=== PATIENT | male | born 1935 | race Two or more races ===

== ENCOUNTER 2023-02-05 00:27 | Inpatient (IN) | payer MEDICARE, OTHER ==
[~2023-02-05] VITALS: Ht 165.1 cm; Wt 77.1 kg
[2023-02-05 01:18] LABS: HEMATOCRIT 43.4 % (36.7-47.1); MEAN CORPUSCULAR HEMOGLOBIN 31.1 uug (23.8-33.4); MEAN CORPUSCULAR VOLUME 89.7 fL (73.0-96.2); PLATELET COUNT (AUTO) 374 K/uL (152-348)
[2023-02-05] MEDS ORDERED: TIMO5DRO18 EACHEYE (01:20)
[2023-02-05] MEDS ORDERED: RANO500T3 PO (01:20)
[2023-02-05] MEDS ORDERED: MONT10TA33 PO (01:20)
[2023-02-05] MEDS ORDERED: POLY17PO4 PO (01:20)
[2023-02-05] MEDS ORDERED: CALC667T6 PO (01:20)
[2023-02-05] MEDS ORDERED: APIX2.5T PO (01:20)
[2023-02-05] MEDS ORDERED: [UNRECOGNIZED DRUG - CODE] SUBCUT (01:20)
[2023-02-05] MEDS ORDERED: DOCU100C36 PO (01:20)
[2023-02-05] MEDS ORDERED: DULO20CA PO (01:20)
[2023-02-05] MEDS ORDERED: ASCO500T85 PO (01:20)
[2023-02-05] MEDS ORDERED: ZINC220T3 PO (01:20)
[2023-02-05] MEDS ORDERED: CLOP75TA33 PO (01:20)
[2023-02-05] MEDS ORDERED: ATOR40TA PO (01:20)
[2023-02-05] MEDS ORDERED: AMIO200T5 PO (01:20)
[2023-02-05] MEDS ORDERED: GABA-532 PO (01:20)
[2023-02-05] MEDS ORDERED: TOLT2CAP PO (01:20)
[2023-02-05] MEDS ORDERED: MIDO10TA PO (01:20)
[2023-02-05] MEDS ORDERED: ERYT3.5O24 EACHEYE (01:20)
[2023-02-05] MEDS ORDERED: NITR0.4T48 SL (01:20)
[2023-02-05 01:37] LABS: ALANINE AMINOTRANSFERASE 20 U/L (16-63); ALKALINE PHOSPHATASE 116 U/L (50-136); ASPARTATE AMINOTRANSFERASE 10 U/L (15-37); BILIRUBIN,DIRECT 0.2 mg/dL (0.0-0.2); BILIRUBIN,TOTAL 0.9 mg/dL (0.2-1.0); CARBON DIOXIDE 30 mmol/L (21-32); CHLORIDE 105 mmol/L (98-107); CREATININE 1.7 mg/dL (0.6-1.3); GLUCOSE 139 mg/dL (74-106); TOTAL PROTEIN, SERUM 7.3 g/dL (6.4-8.2); UREA NITROGEN, BLOOD 58 mg/dL (7-18)
[2023-02-05 01:40] LABS: ACETAMINOPHEN < 2.0 ug/mL (10-30)
[2023-02-05 01:47] LABS: *BILIRUBIN,URIN NEGATIVE (NEGATIVE); *COLOR,URINE YELLOW (YELLOW); *KETONES,URINE NEGATIVE (NEGATIVE); *UROBILINOGEN,URINE 0.2 E.U./dl (NORMAL); LEUKOCYTE ESTERASE ,URINE 3+ (NEGATIVE); NITRITE, URINE NEGATIVE (NEGATIVE); UGLUCOSE NEGATIVE (NEGATIVE)
[2023-02-05 01:48] LABS: *BLOOD, URINE TRACE (NEGATIVE); *CLARITY,URINE SLIGHTLY CLOUDY (CLEAR)
[2023-02-05 01:57] LABS: *AMPHETAMINE, URINE NEGATIVE (NEGATIVE); *CANNABINOID, URINE NEGATIVE (NEGATIVE); *COCCAINE, URINE NEGATIVE (NEGATIVE); *PHENCYCLIDINE SCREEN,URINE NEGATIVE (NEGATIVE)
--- NOTE | 2023-02-05 02:10 | NUR ---
Telephone call to PET team [place] for eveal. Patient medically cleared.
[2023-02-05 02:34] LABS: BACTERIA,URINE MODERATE /HPF (NONE SEEN); SQUAMOUS EPITHELIAL CELL,UR MANY /HPF (NONE SEEN); WBC,URINE 50-80 /HPF (0-3)
[2023-02-05] MEDS ORDERED: CIPROFLOXACIN HCL 250 MG TABLET PO ONE (02:45)
--- NOTE | 2023-02-05 02:47 | NUR ---
Alber from PET team here to eval patient.
[2023-02-05] MEDS ORDERED: CIPROFLOXACIN HCL 250 MG TABLET ONE (02:53)
--- NOTE | 2023-02-05 03:03 | NUR ---
Patient placed on a 5150 hold for GD.
--- NOTE | 2023-02-05 03:10 | NUR ---
Report given to U nurse
[2023-02-05] MEDS ORDERED: DEXTROSE 50% 50 ML DISP.SYRIN IV PRN (03:30)
--- NOTE | 2023-02-05 04:28 | NUR ---
Pt. admitted to MHU unit, under care of Dr. Lo and OFFICE MACHINE SERVICER APPRENTICE Moni. Report given to nurse Ric. Belongings List completed
[2023-02-05 05:45] VITALS: BP 129/56
[2023-02-05] MEDS ORDERED: MAGNESIUM HYDROXIDE 30 ML LIQUID UDC PO PRN (06:00)
[2023-02-05] MEDS ORDERED: BLOOD SUGAR DIAGNOSTIC 1 EACH STRIP VI ONE (06:00)
[2023-02-05] MEDS ORDERED: MAG HYDROX/AL HYDROX/SIMETH 30 ML LIQUID UDC PO PRN (06:00)
[2023-02-05] MEDS ORDERED: TEMAZEPAM 7.5 MG CAPSULE PO PRN (06:00)
--- NOTE | 2023-02-05 06:19 | NUR ---
GPS Admission Nursing Notes: Received 87 y/o male of a 5150 hold for being Gravely Disabled. Pt arrived into our ER via ambulance then transferred into our unit at 0445 hours on [facility] via ER staff. Per hold pt was yelling and screaming at his staff at [facility] in [place], [place]. He became too difficult to care for. Upon face to face assessment, pt was AOx2, yelling/screaming out unnecessary demands. He mainly speaks Luxembourgish, but can speak and understand some Maldivian. He was disheveled, confused, total care, and non-compliant. He was non-ambulatory and was directly transferred from ER [facility] onto his bed. (L) lower leg wound. Picture taken and placed into his chart. Patient was given his Advisement and Patient's Handbook. He'll be under the care of Dr. Lo and INSTRUCTIONAL CONSULTANT Moni.
[2023-02-05] MEDS: BLOOD SUGAR DIAGNOSTIC 1 EACH STRIP VI SCH ×4 (07:30→20:19)
[2023-02-05] MEDS ORDERED: ERYTHROMYCIN 0.5% OPHT OINT 3.5 GM TUBE EACHEYE SCH ×2 (09:00)
[2023-02-05] MEDS ORDERED: MIDODRINE HCL 5 MG TABLET PO SCH ×2 (09:00)
[2023-02-05] MEDS: MIRALAX 17 GM POWD.PACK PO SCH (09:00)
[2023-02-05 09:12] VITALS: BP 158/80
[2023-02-05] MEDS: CALCIUM ACETATE 667 MG CAP/TAB PO SCH ×3 (10:34→18:15)
[2023-02-05] MEDS: RANOLAZINE 500 MG TAB.ER.12H PO SCH ×2 (10:34→18:16)
[2023-02-05] MEDS: TOLTERODINE LA 2 MG CAP.SR.24H PO SCH ×2 (10:34→18:13)
[2023-02-05] MEDS: GABAPENTIN 100 MG CAPSULE PO SCH ×2 (10:36→18:16)
[2023-02-05] MEDS: AMIODARONE HCL 200 MG TABLET PO SCH (10:37)
[2023-02-05] MEDS: APIXABAN 2.5 MG TABLET PO SCH ×2 (10:37→18:15)
[2023-02-05] MEDS: CLOPIDOGREL 75 MG TABLET PO SCH (10:38)
[2023-02-05] MEDS: TIMOLOL MALEATE 0.5% OPHT DROP 5 ML BOTTLE EACHEYE SCH ×2 (10:39→18:17)
[2023-02-05] MEDS: ZINC SULFATE 220 MG CAPSULE PO SCH (10:41)
[2023-02-05] MEDS: DOCUSATE SODIUM 100 MG CAPSULE PO SCH (10:41)
[2023-02-05] MEDS: ASCORBIC ACID 500 MG TABLET PO SCH (10:42)
--- NOTE | 2023-02-05 11:41 | NUR ---
Patient blood glucose was not charted this morning by previous shift, and I could not recheck it because patient had eaten his breakfast at 09:00AM.
[2023-02-05] MEDS ORDERED: CEphaleXIN 500 MG CAPSULE PO SCH (12:00)
[2023-02-05] MEDS: INSULIN REGULAR, HUMAN 300 UNIT/3 ML VIAL SQ PRN ×2 (12:36→18:24)
--- NOTE | 2023-02-05 12:41 | NUR ---
blood glucose is 226, 6 units given per sliding scale.
[2023-02-05] MEDS: DIVALPROEX SPRINKLE 125 MG CAP.SPRINK PO SCH ×2 (13:25→18:13)
[2023-02-05] MEDS: CEphaleXIN 250 MG CAPSULE PO SCH ×2 (13:26→21:59)
[2023-02-05 15:34] VITALS: BP 176/57
[2023-02-05] MEDS: DULOXETINE 30 MG CAPSULE.DR PO SCH (18:13)
[2023-02-05] MEDS: GABAPENTIN 300 MG CAPSULE PO SCH (19:07)
--- NOTE | 2023-02-05 19:54 | NUR ---
Patient is cooperative with nursing care, compliant with medications, calm, talkative. A/O X 2 to person, place. Emotional support provided. Fall and safety precautions implemented.
[2023-02-05] MEDS: ATORVASTATIN 40 MG TABLET PO SCH (20:26)
[2023-02-05] MEDS: MONTELUKAST SODIUM 10 MG TABLET PO SCH (20:26)
[2023-02-05] MEDS: INSULIN GLARGINE,HUM 300 UNITS/3 ML CARTRIDGE SQ SCH (20:27)
[2023-02-05 20:39] VITALS: BP 150/62
[2023-02-05] MEDS: INSULIN REGULAR, HUMAN 300 UNITS/3 ML VIAL SQ PRN (20:44)
--- NOTE | 2023-02-05 23:53 | NUR ---
GPS: Asleep upon rounds with resp.even and unlabored. Pt.was anxious,easily irritable and labile earlier. Re-directed and re-assured prn. Took bedtime meds.without any problems. Fall precautions observed. Needs attended. Insight and judgment remains impaired.
[2023-02-06] MEDS: CEphaleXIN 250 MG CAPSULE PO SCH ×3 (06:01→21:08)
[2023-02-06] MEDS: BLOOD SUGAR DIAGNOSTIC 1 EACH STRIP VI SCH ×4 (06:13→20:38)
[2023-02-06 07:23] LABS: ALANINE AMINOTRANSFERASE 13 U/L (16-63); ALKALINE PHOSPHATASE 97 U/L (50-136); ASPARTATE AMINOTRANSFERASE 9 U/L (15-37); BILIRUBIN,TOTAL 0.8 mg/dL (0.2-1.0); CARBON DIOXIDE 32 mmol/L (21-32); CHLORIDE 106 mmol/L (98-107); CREATININE 1.6 mg/dL (0.6-1.3); GLUCOSE 111 mg/dL (74-106); POTASSIUM 5.1 mmol/L (3.5-5.1); TOTAL PROTEIN, SERUM 6.5 g/dL (6.4-8.2); UREA NITROGEN, BLOOD 53 mg/dL (7-18)
--- NOTE | 2023-02-06 07:30 | NUR ---
GPS Nursing notes: Patient is in his room lying in bed awake, with no S/S of distress, Patient denies pain or discomforts, stated he would like to shower this morning, fall and safety precaution implemented.will continue to monitor.
[2023-02-06 08:00] VITALS: BP 147/81
[2023-02-06] MEDS: CLOPIDOGREL 75 MG TABLET PO SCH (08:32)
[2023-02-06] MEDS: APIXABAN 2.5 MG TABLET PO SCH ×2 (08:32→16:58)
[2023-02-06] MEDS: CALCIUM ACETATE 667 MG CAP/TAB PO SCH ×3 (08:32→16:59)
[2023-02-06] MEDS: DULOXETINE 30 MG CAPSULE.DR PO SCH ×2 (08:32→17:01)
[2023-02-06] MEDS: DOCUSATE SODIUM 100 MG CAPSULE PO SCH (08:32)
[2023-02-06] MEDS: DIVALPROEX SPRINKLE 125 MG CAP.SPRINK PO SCH ×3 (08:33→17:01)
[2023-02-06] MEDS: ASCORBIC ACID 500 MG TABLET PO SCH (08:33)
[2023-02-06] MEDS: GABAPENTIN 300 MG CAPSULE PO SCH ×2 (08:35→17:01)
[2023-02-06] MEDS: AMIODARONE HCL 200 MG TABLET PO SCH (08:35)
[2023-02-06] MEDS: TIMOLOL MALEATE 0.5% OPHT DROP 5 ML BOTTLE EACHEYE SCH ×2 (08:36→16:58)
[2023-02-06] MEDS: TOLTERODINE LA 2 MG CAP.SR.24H PO SCH ×2 (08:38→17:01)
[2023-02-06] MEDS: ZINC SULFATE 220 MG CAPSULE PO SCH (08:38)
[2023-02-06] MEDS: MIRALAX 17 GM POWD.PACK PO SCH (08:55)
[2023-02-06] MEDS: RANOLAZINE 500 MG TAB.ER.12H PO SCH ×2 (09:44→16:59)
--- NOTE | 2023-02-06 10:01 | NUR ---
SHERINE Initial Discharge Note: Pt currently resides at [facility] located at [address] [address] ([phone]). SHERINE will contact the admissions team regarding pt's return upon discharge. SHERINE will continue to obtain family contact if available to discuss pt's discharge plan. SHERINE will work with pt and MD to ensure a safe and proper discharge plan.
--- NOTE | 2023-02-06 10:18 | NUR ---
GPS Nursing Notes: Patient with bright affect clear speech, able to verbalized needs, patient is total care, showered patient today with 2 assist, cooperative with medication regiment. At this time patient attending groups. fall and safety precaution observe, emotional support provided.
[2023-02-06] MEDS: INSULIN REGULAR, HUMAN 300 UNIT/3 ML VIAL SQ PRN ×2 (11:37→17:11)
--- NOTE | 2023-02-06 12:07 | NUR ---
Firearms Report: Supervisor Microwave completed and submitted a [employer] firearms report for 5150 grave disability certifications. A copy of report has been placed in patient chart.
[2023-02-06 15:16] VITALS: BP 145/61
--- NOTE | 2023-02-06 16:39 | NUR ---
GPS Nursing notes: [email or web address] called to report Patient is MRSA positive of Nares, called epic to page Medical wood box maker at this time.
[2023-02-06 20:24] VITALS: BP 106/46
[2023-02-06] MEDS: REMEDY ESSENTIAL ZINC PASTE 113 GM TOP SCH (20:32)
[2023-02-06] MEDS: MUPIROCIN 2% OINT 22 GM TUBE NS SCH (20:34)
[2023-02-06] MEDS: INSULIN REGULAR, HUMAN 300 UNITS/3 ML VIAL SQ PRN (20:45)
[2023-02-06] MEDS: MONTELUKAST SODIUM 10 MG TABLET PO SCH (20:47)
[2023-02-06] MEDS: ATORVASTATIN 40 MG TABLET PO SCH (20:47)
[2023-02-06] MEDS: INSULIN GLARGINE,HUM 300 UNITS/3 ML CARTRIDGE SQ SCH (20:48)
[2023-02-07] MEDS: CEphaleXIN 250 MG CAPSULE PO SCH ×3 (06:10→21:18)
[2023-02-07] MEDS: BLOOD SUGAR DIAGNOSTIC 1 EACH STRIP VI SCH ×4 (06:30→20:23)
--- NOTE | 2023-02-07 06:38 | NUR ---
GPS: Pt.slept 7.30 last night. Less anxious and needy. Med.compliant. Allows care from staff. No aggressive behavior noted. B.S. at this time is 86mg/dl. Incontinence care rendered. Fall precautions observed.Will continue to monitor.
--- NOTE | 2023-02-07 07:00 | NUR ---
GPS Nursing notes: Patient is awake,lying in bed, with bright affect, stated ,"Good Morning", clapping his hand. no S/S of discomforts noted. Fall and safety precaution implemented, will continue to monitor.
[2023-02-07 07:46] VITALS: BP 135/47
[2023-02-07] MEDS: APIXABAN 2.5 MG TABLET PO SCH ×2 (08:13→16:50)
[2023-02-07] MEDS: MIRALAX 17 GM POWD.PACK PO SCH (08:14)
[2023-02-07] MEDS: DIVALPROEX SPRINKLE 125 MG CAP.SPRINK PO SCH ×3 (08:15→16:59)
[2023-02-07] MEDS: DULOXETINE 30 MG CAPSULE.DR PO SCH ×2 (08:15→16:59)
[2023-02-07] MEDS: DOCUSATE SODIUM 100 MG CAPSULE PO SCH (08:15)
[2023-02-07] MEDS: ASCORBIC ACID 500 MG TABLET PO SCH (08:15)
[2023-02-07] MEDS: CLOPIDOGREL 75 MG TABLET PO SCH (08:15)
[2023-02-07] MEDS: ZINC SULFATE 220 MG CAPSULE PO SCH (08:15)
[2023-02-07] MEDS: CALCIUM ACETATE 667 MG CAP/TAB PO SCH ×3 (08:16→16:50)
[2023-02-07] MEDS: GABAPENTIN 300 MG CAPSULE PO SCH ×2 (08:16→16:59)
[2023-02-07] MEDS: RANOLAZINE 500 MG TAB.ER.12H PO SCH ×2 (08:16→16:50)
[2023-02-07] MEDS: TIMOLOL MALEATE 0.5% OPHT DROP 5 ML BOTTLE EACHEYE SCH ×2 (08:18→16:50)
[2023-02-07] MEDS: MUPIROCIN 2% OINT 22 GM TUBE NS SCH ×2 (08:19→20:14)
[2023-02-07] MEDS: AMIODARONE HCL 200 MG TABLET PO SCH (08:19)
[2023-02-07] MEDS: TOLTERODINE LA 2 MG CAP.SR.24H PO SCH ×2 (08:29→16:59)
[2023-02-07] MEDS: REMEDY ESSENTIAL ZINC PASTE 113 GM TOP SCH ×2 (08:43→20:14)
--- NOTE | 2023-02-07 11:06 | NUR ---
GPS 14 Day Hold Certification: Patient place on 5250, Certification given to patient and explained. Patient was informed that a certification review hearing will be hel with in four days. Also, patient's right advocate will call to provide esol teacher assistant on answering his questions. The court has been notified of this certification via [facility] Portal this day.
[2023-02-07] MEDS: INSULIN REGULAR, HUMAN 300 UNIT/3 ML VIAL SQ PRN (12:01)
[2023-02-07 16:35] VITALS: BP 157/54
[2023-02-07 20:00] VITALS: BP 147/61
[2023-02-07] MEDS: MONTELUKAST SODIUM 10 MG TABLET PO SCH (20:14)
[2023-02-07] MEDS: ATORVASTATIN 40 MG TABLET PO SCH (20:14)
[2023-02-07] MEDS: INSULIN GLARGINE,HUM 300 UNITS/3 ML CARTRIDGE SQ SCH (20:25)
[2023-02-08] MEDS: CEphaleXIN 250 MG CAPSULE PO SCH ×3 (06:11→21:07)
[2023-02-08] MEDS: BLOOD SUGAR DIAGNOSTIC 1 EACH STRIP VI SCH ×5 (06:21→21:14)
[2023-02-08 08:17] VITALS: BP 186/54
[2023-02-08] MEDS: ASCORBIC ACID 500 MG TABLET PO SCH (09:00)
[2023-02-08] MEDS: AMIODARONE HCL 200 MG TABLET PO SCH (09:09)
[2023-02-08] MEDS: DOCUSATE SODIUM 100 MG CAPSULE PO SCH (09:09)
[2023-02-08] MEDS: CLOPIDOGREL 75 MG TABLET PO SCH (09:09)
[2023-02-08] MEDS: DIVALPROEX SPRINKLE 125 MG CAP.SPRINK PO SCH ×3 (09:09→16:53)
[2023-02-08] MEDS: GABAPENTIN 300 MG CAPSULE PO SCH ×2 (09:10→16:54)
[2023-02-08] MEDS: DULOXETINE 30 MG CAPSULE.DR PO SCH ×2 (09:10→16:54)
[2023-02-08] MEDS: APIXABAN 2.5 MG TABLET PO SCH ×2 (09:12→16:53)
[2023-02-08] MEDS: CALCIUM ACETATE 667 MG CAP/TAB PO SCH ×3 (09:13→16:55)
[2023-02-08] MEDS: MIRALAX 17 GM POWD.PACK PO SCH (09:14)
[2023-02-08] MEDS: RANOLAZINE 500 MG TAB.ER.12H PO SCH ×2 (09:14→16:55)
[2023-02-08] MEDS: TOLTERODINE LA 2 MG CAP.SR.24H PO SCH ×2 (09:15→16:53)
[2023-02-08] MEDS: TIMOLOL MALEATE 0.5% OPHT DROP 5 ML BOTTLE EACHEYE SCH ×2 (09:22→16:56)
[2023-02-08] MEDS: MUPIROCIN 2% OINT 22 GM TUBE NS SCH ×2 (09:23→21:08)
[2023-02-08] MEDS: REMEDY ESSENTIAL ZINC PASTE 113 GM TOP SCH ×2 (09:24→21:14)
[2023-02-08] MEDS: ZINC SULFATE 220 MG CAPSULE PO SCH (09:24)
[2023-02-08 16:29] VITALS: BP 148/65
[2023-02-08] MEDS: INSULIN REGULAR, HUMAN 300 UNIT/3 ML VIAL SQ PRN (16:51)
[2023-02-08] MEDS: ATORVASTATIN 40 MG TABLET PO SCH (21:07)
[2023-02-08] MEDS: MONTELUKAST SODIUM 10 MG TABLET PO SCH (21:07)
[2023-02-08] MEDS: INSULIN GLARGINE,HUM 300 UNITS/3 ML CARTRIDGE SQ SCH (21:11)
[2023-02-08] MEDS: LORAZEPAM 0.5 MG TABLET PO PRN (23:12)
--- NOTE | 2023-02-09 00:13 | NUR ---
Pt had episodes of increased anxiety and was difficult to redirect. Pt would not follow directions from staff. Gave Ativan po prn to help calm patient and to prevent further moments of yelling out demands which kept others in the unit awake and anxious. Safe environment provided. Will continue to monitor.
[2023-02-09] MEDS: BLOOD SUGAR DIAGNOSTIC 1 EACH STRIP VI SCH ×4 (05:51→21:06)
[2023-02-09] MEDS: CEphaleXIN 250 MG CAPSULE PO SCH ×3 (05:59→20:43)
[2023-02-09 07:58] VITALS: BP 158/80
[2023-02-09] MEDS: MIRALAX 17 GM POWD.PACK PO SCH (09:16)
[2023-02-09] MEDS: RANOLAZINE 500 MG TAB.ER.12H PO SCH ×2 (09:17→17:12)
[2023-02-09] MEDS: DULOXETINE 30 MG CAPSULE.DR PO SCH (09:17)
[2023-02-09] MEDS: MUPIROCIN 2% OINT 22 GM TUBE NS SCH ×2 (09:17→20:06)
[2023-02-09] MEDS: TIMOLOL MALEATE 0.5% OPHT DROP 5 ML BOTTLE EACHEYE SCH ×2 (09:17→17:12)
[2023-02-09] MEDS: GABAPENTIN 300 MG CAPSULE PO SCH ×2 (09:18→17:09)
[2023-02-09] MEDS: CALCIUM ACETATE 667 MG CAP/TAB PO SCH ×3 (09:18→17:10)
[2023-02-09] MEDS: AMIODARONE HCL 200 MG TABLET PO SCH (09:19)
[2023-02-09] MEDS: DIVALPROEX SPRINKLE 125 MG CAP.SPRINK PO SCH ×2 (09:19→17:10)
[2023-02-09] MEDS: CLOPIDOGREL 75 MG TABLET PO SCH (09:20)
[2023-02-09] MEDS: DOCUSATE SODIUM 100 MG CAPSULE PO SCH (09:20)
[2023-02-09] MEDS: APIXABAN 2.5 MG TABLET PO SCH ×2 (09:21→17:11)
[2023-02-09] MEDS: TOLTERODINE LA 2 MG CAP.SR.24H PO SCH ×2 (09:22→17:09)
[2023-02-09] MEDS: REMEDY ESSENTIAL ZINC PASTE 113 GM TOP SCH ×2 (09:23→20:44)
[2023-02-09] MEDS: ASCORBIC ACID 500 MG TABLET PO SCH (09:23)
[2023-02-09] MEDS: ZINC SULFATE 220 MG CAPSULE PO SCH (09:23)
[2023-02-09] MEDS ORDERED: DIVALPROEX SPRINKLE 125 MG CAP.SPRINK PO ONE (13:00)
[2023-02-09 16:31] VITALS: BP 118/43
--- NOTE | 2023-02-09 17:45 | NUR ---
Received patient is alert and oriented x3 Frisian speaking denies any pain or discomfort, assisted patient up omar-chair ,patient able to attend in group activity and participated .glucose checked with sliding scale covered.no agitated and aggressive Behavior noted .total care to all ADLS will continue close to monitoring.eceived
[2023-02-09 19:49] VITALS: BP 123/62
[2023-02-09] MEDS: ATORVASTATIN 40 MG TABLET PO SCH (20:06)
[2023-02-09] MEDS: MONTELUKAST SODIUM 10 MG TABLET PO SCH (20:06)
[2023-02-09] MEDS: INSULIN REGULAR, HUMAN 300 UNITS/3 ML VIAL SQ PRN (20:41)
[2023-02-09] MEDS: INSULIN GLARGINE,HUM 300 UNITS/3 ML CARTRIDGE SQ SCH (20:42)
[2023-02-10] MEDS: CEphaleXIN 250 MG CAPSULE PO SCH ×3 (06:06→20:20)
[2023-02-10] MEDS: BLOOD SUGAR DIAGNOSTIC 1 EACH STRIP VI SCH ×4 (06:17→20:35)
--- NOTE | 2023-02-10 07:30 | NUR ---
GPS Nursing notes: Patient is in bed awake, denies pain or discomforts. Fall and safety precaution implemented, emotional support provided.
[2023-02-10 08:00] VITALS: BP 169/70
[2023-02-10] MEDS ORDERED: DULOXETINE 30 MG CAPSULE.DR PO SCH (08:00)
[2023-02-10] MEDS: ZINC SULFATE 220 MG CAPSULE PO SCH (08:54)
[2023-02-10] MEDS: AMIODARONE HCL 200 MG TABLET PO SCH (08:54)
[2023-02-10] MEDS: TOLTERODINE LA 2 MG CAP.SR.24H PO SCH ×2 (08:55→17:15)
[2023-02-10] MEDS: GABAPENTIN 300 MG CAPSULE PO SCH ×2 (08:55→17:15)
[2023-02-10] MEDS: DOCUSATE SODIUM 100 MG CAPSULE PO SCH (08:55)
[2023-02-10] MEDS: DIVALPROEX SPRINKLE 125 MG CAP.SPRINK PO SCH ×2 (08:55→17:58)
[2023-02-10] MEDS: ASCORBIC ACID 500 MG TABLET PO SCH (08:55)
[2023-02-10] MEDS: CLOPIDOGREL 75 MG TABLET PO SCH (08:55)
[2023-02-10] MEDS: MIRALAX 17 GM POWD.PACK PO SCH (08:57)
[2023-02-10] MEDS: RANOLAZINE 500 MG TAB.ER.12H PO SCH ×2 (08:57→17:15)
[2023-02-10] MEDS: MUPIROCIN 2% OINT 22 GM TUBE NS SCH ×2 (08:57→20:21)
[2023-02-10] MEDS: APIXABAN 2.5 MG TABLET PO SCH ×2 (08:57→17:16)
[2023-02-10] MEDS: CALCIUM ACETATE 667 MG CAP/TAB PO SCH ×3 (08:57→17:15)
[2023-02-10] MEDS: REMEDY ESSENTIAL ZINC PASTE 113 GM TOP SCH ×2 (09:11→20:23)
[2023-02-10] MEDS: TIMOLOL MALEATE 0.5% OPHT DROP 5 ML BOTTLE EACHEYE SCH ×2 (09:11→17:15)
[2023-02-10] MEDS: LORAZEPAM 0.5 MG TABLET PO PRN (10:09)
[2023-02-10] MEDS: INSULIN REGULAR, HUMAN 300 UNIT/3 ML VIAL SQ PRN (11:46)
[2023-02-10 16:00] VITALS: BP 111/66
[2023-02-10 20:12] VITALS: BP 141/64
[2023-02-10] MEDS: ATORVASTATIN 40 MG TABLET PO SCH (20:20)
[2023-02-10] MEDS: MONTELUKAST SODIUM 10 MG TABLET PO SCH (20:20)
[2023-02-10] MEDS: INSULIN GLARGINE,HUM 300 UNITS/3 ML CARTRIDGE SQ SCH (20:33)
[2023-02-10] MEDS: INSULIN REGULAR, HUMAN 300 UNITS/3 ML VIAL SQ PRN (20:35)
--- NOTE | 2023-02-11 00:19 | NUR ---
Pt displayed s/s of hypoglycemia. Pt was cold and clammy, sweaty, and somewhat slow in cognitive abilities. RBS noted 112. Gave orange juice and a few gram crackers. Patient stated that he felt better and was ready for sleep. Continued with monitoring.
--- NOTE | 2023-02-11 00:23 | NUR ---
Gave Restoril 7.5mg po prn for help with falling asleep per patient request. Safe environment provided. Will continue to monitor.
[2023-02-11] MEDS: CEphaleXIN 250 MG CAPSULE PO SCH ×3 (06:13→21:50)
[2023-02-11] MEDS: BLOOD SUGAR DIAGNOSTIC 1 EACH STRIP VI SCH ×4 (06:29→21:02)
[2023-02-11 07:00] LABS: HEMATOCRIT 40.3 % (36.7-47.1); MEAN CORPUSCULAR HEMOGLOBIN 32.1 uug (23.8-33.4); MEAN CORPUSCULAR VOLUME 88.9 fL (73.0-96.2); PLATELET COUNT (AUTO) 312 K/uL (152-348)
[2023-02-11 07:21] LABS: ALANINE AMINOTRANSFERASE 18 U/L (16-63); ALKALINE PHOSPHATASE 101 U/L (50-136); ASPARTATE AMINOTRANSFERASE 17 U/L (15-37); BILIRUBIN,TOTAL 0.7 mg/dL (0.2-1.0); CARBON DIOXIDE 35 mmol/L (21-32); CHLORIDE 102 mmol/L (98-107); CREATININE 1.2 mg/dL (0.6-1.3); GLUCOSE 96 mg/dL (74-106); POTASSIUM 4.7 mmol/L (3.5-5.1); TOTAL PROTEIN, SERUM 6.6 g/dL (6.4-8.2); UREA NITROGEN, BLOOD 31 mg/dL (7-18)
[2023-02-11 08:00] VITALS: BP 107/67
[2023-02-11] MEDS: TIMOLOL MALEATE 0.5% OPHT DROP 5 ML BOTTLE EACHEYE SCH ×2 (08:45→17:05)
[2023-02-11] MEDS: CLOPIDOGREL 75 MG TABLET PO SCH (08:46)
[2023-02-11] MEDS: ASCORBIC ACID 500 MG TABLET PO SCH (08:46)
[2023-02-11] MEDS: AMIODARONE HCL 200 MG TABLET PO SCH (08:46)
[2023-02-11] MEDS: DOCUSATE SODIUM 100 MG CAPSULE PO SCH (08:46)
[2023-02-11] MEDS: CALCIUM ACETATE 667 MG CAP/TAB PO SCH ×3 (08:46→17:04)
[2023-02-11] MEDS: GABAPENTIN 300 MG CAPSULE PO SCH ×2 (08:46→17:04)
[2023-02-11] MEDS: DIVALPROEX SPRINKLE 125 MG CAP.SPRINK PO SCH ×2 (08:46→17:04)
[2023-02-11] MEDS: ZINC SULFATE 220 MG CAPSULE PO SCH (08:46)
[2023-02-11] MEDS: MIRALAX 17 GM POWD.PACK PO SCH (08:47)
[2023-02-11] MEDS: REMEDY ESSENTIAL ZINC PASTE 113 GM TOP SCH ×2 (08:47→20:54)
[2023-02-11] MEDS: APIXABAN 2.5 MG TABLET PO SCH ×2 (08:47→17:05)
[2023-02-11] MEDS: RANOLAZINE 500 MG TAB.ER.12H PO SCH ×2 (08:48→17:04)
[2023-02-11] MEDS: MUPIROCIN 2% OINT 22 GM TUBE NS SCH ×2 (08:48→20:54)
[2023-02-11] MEDS: TOLTERODINE LA 2 MG CAP.SR.24H PO SCH ×2 (10:18→17:04)
--- NOTE | 2023-02-11 12:00 | NUR ---
Blood sugar POC test done , 159, insulin not given , patient did not want to eat lunch.
--- NOTE | 2023-02-11 15:13 | NUR ---
Received patient sleeping in his room. Patient is A/O X 2-3 to person, place. Patient is isolative, withdrawn, depressed, quiet, not engage in group activities or interactions with peers, compliant with medications, cooperative with nursing care. Emotional support provided. Fall and safety precautions implemented.
[2023-02-11 16:00] VITALS: BP 123/44
[2023-02-11] MEDS: INSULIN REGULAR, HUMAN 300 UNIT/3 ML VIAL SQ PRN (17:07)
--- NOTE | 2023-02-11 19:58 | NUR ---
Patient in bed, awake, able to make needs known during initial rounds. In no acute respiratory distress. Denies any pain/discomforts at this time. Safety measures and fall prevention continuos. VS stable.
[2023-02-11 20:00] VITALS: BP 142/73
[2023-02-11] MEDS: ATORVASTATIN 40 MG TABLET PO SCH (20:54)
[2023-02-11] MEDS: MONTELUKAST SODIUM 10 MG TABLET PO SCH (20:54)
[2023-02-11] MEDS ORDERED: REMEDY ESSENTIAL ZINC PASTE 113 GM TOP SCH (21:00)
[2023-02-11] MEDS: INSULIN GLARGINE,HUM 300 UNITS/3 ML CARTRIDGE SQ SCH (21:04)
[2023-02-12] MEDS: CEphaleXIN 250 MG CAPSULE PO SCH (06:10)
[2023-02-12] MEDS: BLOOD SUGAR DIAGNOSTIC 1 EACH STRIP VI SCH ×4 (06:15→20:32)
[2023-02-12 07:49] VITALS: BP 140/59
[2023-02-12] MEDS: ASCORBIC ACID 500 MG TABLET PO SCH (09:12)
[2023-02-12] MEDS: AMIODARONE HCL 200 MG TABLET PO SCH (09:13)
[2023-02-12] MEDS: ZINC SULFATE 220 MG CAPSULE PO SCH (09:13)
[2023-02-12] MEDS: DOCUSATE SODIUM 100 MG CAPSULE PO SCH (09:13)
[2023-02-12] MEDS: CLOPIDOGREL 75 MG TABLET PO SCH (09:13)
[2023-02-12] MEDS: DIVALPROEX SPRINKLE 125 MG CAP.SPRINK PO SCH ×2 (09:13→16:58)
[2023-02-12] MEDS: TOLTERODINE LA 2 MG CAP.SR.24H PO SCH ×2 (09:13→16:58)
[2023-02-12] MEDS: GABAPENTIN 300 MG CAPSULE PO SCH ×2 (09:13→16:58)
[2023-02-12] MEDS: CALCIUM ACETATE 667 MG CAP/TAB PO SCH ×3 (09:13→17:00)
[2023-02-12] MEDS: RANOLAZINE 500 MG TAB.ER.12H PO SCH ×2 (09:14→17:00)
[2023-02-12] MEDS: MIRALAX 17 GM POWD.PACK PO SCH (09:15)
[2023-02-12] MEDS: APIXABAN 2.5 MG TABLET PO SCH ×2 (09:15→16:59)
[2023-02-12] MEDS: TIMOLOL MALEATE 0.5% OPHT DROP 5 ML BOTTLE EACHEYE SCH ×2 (09:16→16:59)
[2023-02-12] MEDS: MUPIROCIN 2% OINT 22 GM TUBE NS SCH ×2 (09:17→20:34)
[2023-02-12] MEDS: REMEDY ESSENTIAL ZINC PASTE 113 GM TOP SCH ×2 (09:17→20:34)
--- NOTE | 2023-02-12 15:03 | NUR ---
Patient is talkative, cooperative with nursing care, compliant with medications and accuchecks, fixated on discharge plan, depressed at times, engage in group activities. Patient is A/O X 2 to person, place. Patient is encourage to verbalize concerns. Fall and safety precautions implemented.
[2023-02-12 16:22] VITALS: BP 146/80
[2023-02-12] MEDS: ATORVASTATIN 40 MG TABLET PO SCH (20:33)
[2023-02-12] MEDS: MONTELUKAST SODIUM 10 MG TABLET PO SCH (20:33)
[2023-02-12] MEDS: INSULIN REGULAR, HUMAN 300 UNITS/3 ML VIAL SQ PRN (20:38)
[2023-02-12] MEDS: INSULIN GLARGINE,HUM 300 UNITS/3 ML CARTRIDGE SQ SCH (20:39)
[2023-02-12 21:20] VITALS: BP 111/60
--- NOTE | 2023-02-13 04:53 | NUR ---
Pt is pleasant up on approach, compliant with medications and nursing care. Pt can be needy and demanding at times. Pt is labile and can get easily irritable when his demands are not met. Emotional support and reassurance provided. Safety measures in place. Continue to monitor for safety.
[2023-02-13] MEDS: BLOOD SUGAR DIAGNOSTIC 1 EACH STRIP VI SCH (06:48)
[2023-02-13 08:23] VITALS: BP 141/67
[2023-02-13] MEDS ORDERED: MIRALAX 17 GM POWD.PACK PO PRN (09:00)
[2023-02-13] MEDS: CLOPIDOGREL 75 MG TABLET PO SCH (09:01)
[2023-02-13] MEDS: DOCUSATE SODIUM 100 MG CAPSULE PO SCH (09:01)
[2023-02-13] MEDS: GABAPENTIN 300 MG CAPSULE PO SCH ×2 (09:02→16:57)
[2023-02-13] MEDS: TOLTERODINE LA 2 MG CAP.SR.24H PO SCH ×2 (09:02→16:57)
[2023-02-13] MEDS: ASCORBIC ACID 500 MG TABLET PO SCH (09:02)
[2023-02-13] MEDS: ZINC SULFATE 220 MG CAPSULE PO SCH (09:02)
[2023-02-13] MEDS: AMIODARONE HCL 200 MG TABLET PO SCH (09:02)
[2023-02-13] MEDS: DIVALPROEX SPRINKLE 125 MG CAP.SPRINK PO SCH ×2 (09:02→16:57)
[2023-02-13] MEDS: MUPIROCIN 2% OINT 22 GM TUBE NS SCH (09:03)
[2023-02-13] MEDS: TIMOLOL MALEATE 0.5% OPHT DROP 5 ML BOTTLE EACHEYE SCH ×2 (09:04→17:00)
[2023-02-13] MEDS: RANOLAZINE 500 MG TAB.ER.12H PO SCH ×2 (09:05→16:57)
[2023-02-13] MEDS: APIXABAN 2.5 MG TABLET PO SCH ×2 (09:05→16:59)
[2023-02-13] MEDS: REMEDY ESSENTIAL ZINC PASTE 113 GM TOP SCH ×2 (09:06→20:18)
--- NOTE | 2023-02-13 14:37 | NUR ---
Patient is easily agitated, needy, talkative, argumentative. Patient states "If you don't give me peanut butter and jelly for dinner, I won't eat anything, and won't take any medications, take your pick!" Emotional support provided. Fall and safety precautions implemented.
[2023-02-13 17:24] VITALS: BP 135/60
[2023-02-13] MEDS: ATORVASTATIN 20 MG TABLET PO SCH (20:10)
[2023-02-13] MEDS: MONTELUKAST SODIUM 10 MG TABLET PO SCH (20:10)
[2023-02-13] MEDS: INSULIN GLARGINE,HUM 300 UNITS/3 ML CARTRIDGE SQ SCH (20:24)
[2023-02-13 21:55] VITALS: BP 120/52
--- NOTE | 2023-02-14 04:11 | NUR ---
Pt is A/O X2, Pt can not care for self and needs total assistance with ADLs. Pt is compliant with medications and nursing care. Pt was less needy and less argumentative. Pt is unable to provide a bailable plan of care. Emotional support provided, safety measures put in place. Continue to monitor for safety.
[2023-02-14 08:30] VITALS: BP 137/60
[2023-02-14] MEDS: DOCUSATE SODIUM 100 MG CAPSULE PO SCH (08:46)
[2023-02-14] MEDS: TOLTERODINE LA 2 MG CAP.SR.24H PO SCH ×2 (08:46→16:34)
[2023-02-14] MEDS: TIMOLOL MALEATE 0.5% OPHT DROP 5 ML BOTTLE EACHEYE SCH ×2 (08:46→16:34)
[2023-02-14] MEDS: AMIODARONE HCL 200 MG TABLET PO SCH (08:46)
[2023-02-14] MEDS: DIVALPROEX SPRINKLE 125 MG CAP.SPRINK PO SCH ×2 (08:46→16:34)
[2023-02-14] MEDS: GABAPENTIN 300 MG CAPSULE PO SCH ×2 (08:47→16:34)
[2023-02-14] MEDS: APIXABAN 2.5 MG TABLET PO SCH ×2 (08:47→16:35)
[2023-02-14] MEDS: RANOLAZINE 500 MG TAB.ER.12H PO SCH ×3 (08:48→16:34)
[2023-02-14] MEDS: CLOPIDOGREL 75 MG TABLET PO SCH (08:48)
[2023-02-14] MEDS: ASCORBIC ACID 500 MG TABLET PO SCH (08:48)
[2023-02-14] MEDS: ZINC SULFATE 220 MG CAPSULE PO SCH (08:49)
[2023-02-14] MEDS: REMEDY ESSENTIAL ZINC PASTE 113 GM TOP SCH ×2 (08:49→21:04)
--- NOTE | 2023-02-14 09:30 | NUR ---
Argumentative, redirected. Ask to take 3 medications at a time. Shower given. Placed on gerichair, attended activity.
--- NOTE | 2023-02-14 13:30 | NUR ---
Eating well. Reports of being bloated after eating, why he's only taking 3 medication at a time. Requested to be back to bed, resting comfortably.
[2023-02-14 16:33] VITALS: BP 164/64
--- NOTE | 2023-02-14 17:31 | NUR ---
Requested for another portion of food. Redirected with taking of medications
[2023-02-14 20:27] VITALS: BP 124/60
[2023-02-14] MEDS: ATORVASTATIN 20 MG TABLET PO SCH (21:01)
[2023-02-14] MEDS: MONTELUKAST SODIUM 10 MG TABLET PO SCH (21:01)
[2023-02-14] MEDS: INSULIN GLARGINE,HUM 300 UNITS/3 ML CARTRIDGE SQ SCH (21:12)
[2023-02-15 08:50] VITALS: BP 168/60
[2023-02-15] MEDS: AMIODARONE HCL 200 MG TABLET PO SCH (09:05)
[2023-02-15] MEDS: TOLTERODINE LA 2 MG CAP.SR.24H PO SCH ×2 (09:05→16:34)
[2023-02-15] MEDS: ASCORBIC ACID 500 MG TABLET PO SCH (09:05)
[2023-02-15] MEDS: GABAPENTIN 300 MG CAPSULE PO SCH ×2 (09:06→16:34)
[2023-02-15] MEDS: DOCUSATE SODIUM 100 MG CAPSULE PO SCH (09:06)
[2023-02-15] MEDS: CLOPIDOGREL 75 MG TABLET PO SCH (09:06)
[2023-02-15] MEDS: DIVALPROEX SPRINKLE 125 MG CAP.SPRINK PO SCH ×2 (09:06→16:35)
[2023-02-15] MEDS: ZINC SULFATE 220 MG CAPSULE PO SCH (09:06)
[2023-02-15] MEDS: RANOLAZINE 500 MG TAB.ER.12H PO SCH ×2 (09:07→16:35)
[2023-02-15] MEDS: REMEDY ESSENTIAL ZINC PASTE 113 GM TOP SCH ×2 (09:07→20:28)
[2023-02-15] MEDS: TIMOLOL MALEATE 0.5% OPHT DROP 5 ML BOTTLE EACHEYE SCH ×2 (09:08→16:36)
[2023-02-15] MEDS: APIXABAN 2.5 MG TABLET PO SCH ×2 (09:09→16:38)
[2023-02-15 10:20] VITALS: BP 173/64
[2023-02-15] MEDS ORDERED: CLONIDINE HCL 0.1 MG TABLET PO PRN (11:00)
--- NOTE | 2023-02-15 11:00 | NUR ---
This morning pt had a blood pressure of 168/60 and a pulse of 62 and when rechecked it was 173/68 and a pulse of 64. Pt was responsive and no acute distress noted. Pleat Taper was notified and received an order for blood pressure medications. Lisinopril 10mg PO dally was administered.safety measures in place.Continue to monitor.
[2023-02-15] MEDS: LISINOPRIL 10 MG TABLET PO SCH (11:15)
[2023-02-15 12:30] VITALS: BP 150/66
--- NOTE | 2023-02-15 14:50 | NUR ---
Pt gets easily agitated, Pt is needy, hyperverbal, demanding and argumentative if demand are not met. Pt stated "If you don't give me peanut butter and jelly sandwich for dinner, I won't eat anything, and won't take medications". Pt needs prompting to take his medications and needs maximal assistance with ADLs. Pt refused to come out of room to attend group activities and screams every 15 minute to have staff with him in the room. Reassurance and Emotional support provided. Fall and safety precautions implemented.
[2023-02-15 16:13] VITALS: BP 134/98
[2023-02-15] MEDS: MONTELUKAST SODIUM 10 MG TABLET PO SCH (20:28)
[2023-02-15] MEDS: ATORVASTATIN 20 MG TABLET PO SCH (20:28)
[2023-02-15] MEDS: INSULIN GLARGINE,HUM 300 UNITS/3 ML CARTRIDGE SQ SCH (20:40)
[2023-02-15 22:30] VITALS: BP 132/56
--- NOTE | 2023-02-16 07:15 | NUR ---
GPS Nursing notes: Patient is lying in bed, "Cruz fransisco", denies pain or discomforts. Fall and safety precautions implemented, emotional support provided.
[2023-02-16 08:21] VITALS: BP 114/78
[2023-02-16] MEDS: APIXABAN 2.5 MG TABLET PO SCH ×2 (09:35→16:48)
[2023-02-16] MEDS: TOLTERODINE LA 2 MG CAP.SR.24H PO SCH ×2 (09:36→16:48)
[2023-02-16] MEDS: CLOPIDOGREL 75 MG TABLET PO SCH (09:36)
[2023-02-16] MEDS: DOCUSATE SODIUM 100 MG CAPSULE PO SCH (09:36)
[2023-02-16] MEDS: TIMOLOL MALEATE 0.5% OPHT DROP 5 ML BOTTLE EACHEYE SCH ×2 (09:36→16:48)
[2023-02-16] MEDS: DIVALPROEX SPRINKLE 125 MG CAP.SPRINK PO SCH ×2 (09:36→16:48)
[2023-02-16] MEDS: ASCORBIC ACID 500 MG TABLET PO SCH (09:36)
[2023-02-16] MEDS: ZINC SULFATE 220 MG CAPSULE PO SCH (09:36)
[2023-02-16] MEDS: GABAPENTIN 300 MG CAPSULE PO SCH ×2 (09:36→16:49)
[2023-02-16] MEDS: RANOLAZINE 500 MG TAB.ER.12H PO SCH ×2 (09:37→16:48)
[2023-02-16] MEDS: LISINOPRIL 10 MG TABLET PO SCH (09:38)
[2023-02-16] MEDS: REMEDY ESSENTIAL ZINC PASTE 113 GM TOP SCH ×2 (09:39→21:14)
[2023-02-16] MEDS: AMIODARONE HCL 200 MG TABLET PO SCH (09:40)
--- NOTE | 2023-02-16 10:38 | NUR ---
SHERINE Discharge Update: Pt currently resides at [facility] located at [address] [address] ([phone]). SHERINE spoke with Andressa espinoza who stated pt is welcome back upon discharge.
--- NOTE | 2023-02-16 11:09 | NUR ---
GPS Nursing notes: Patient is up in W/C, able to verbalized needs, patient attention seeker, asking for frequent requests, focus on discharge, Psychiatrist and manager social media spoke with patient, informed his of discharge plan. Patient showered and shave this morning. medications compliant. fall and safety precaution implemented, emotional support provided.
[2023-02-16 16:51] VITALS: BP 130/55
[2023-02-16 19:55] VITALS: BP 118/66
[2023-02-16] MEDS: MONTELUKAST SODIUM 10 MG TABLET PO SCH (20:25)
[2023-02-16] MEDS: ATORVASTATIN 20 MG TABLET PO SCH (20:25)
[2023-02-16] MEDS: INSULIN GLARGINE,HUM 300 UNITS/3 ML CARTRIDGE SQ SCH (21:32)
--- NOTE | 2023-02-17 05:20 | NUR ---
gps notes: Patient received in bed A&0x3. Patient remains needy, demanding and manipulative. Patient easily gets angry when requests are not attended right away. Needs setting limit w/ the behavior. Med compliant. Sleeping intermittently. With episodes of yelling to make needs known. Needs met and attended. Safety measures in placed.
--- NOTE | 2023-02-17 07:10 | NUR ---
GPS Nursing notes: Patient is awake in bed, denies pain or discomforts. fall and safety precaution implemented. Will continue to monitor.
[2023-02-17 07:22] LABS: HEMATOCRIT 40.4 % (36.7-47.1); MEAN CORPUSCULAR VOLUME 90.2 fL (73.0-96.2); PLATELET COUNT (AUTO) 300 K/uL (152-348)
[2023-02-17 07:34] LABS: ALANINE AMINOTRANSFERASE 14 U/L (16-63); ALKALINE PHOSPHATASE 116 U/L (50-136); ASPARTATE AMINOTRANSFERASE 7 U/L (15-37); BILIRUBIN,TOTAL 0.5 mg/dL (0.2-1.0); CARBON DIOXIDE 36 mmol/L (21-32); CHLORIDE 108 mmol/L (98-107); CREATININE 1.3 mg/dL (0.6-1.3); GLUCOSE 97 mg/dL (74-106); POTASSIUM 5.2 mmol/L (3.5-5.1); TOTAL PROTEIN, SERUM 6.5 g/dL (6.4-8.2); UREA NITROGEN, BLOOD 39 mg/dL (7-18)
[2023-02-17 08:42] VITALS: BP 159/70
[2023-02-17] MEDS: LISINOPRIL 10 MG TABLET PO SCH (08:44)
[2023-02-17] MEDS: ASCORBIC ACID 500 MG TABLET PO SCH (08:44)
[2023-02-17] MEDS: TOLTERODINE LA 2 MG CAP.SR.24H PO SCH ×2 (08:44→17:29)
[2023-02-17] MEDS: DOCUSATE SODIUM 100 MG CAPSULE PO SCH (08:44)
[2023-02-17] MEDS: CLOPIDOGREL 75 MG TABLET PO SCH (08:44)
[2023-02-17] MEDS: RANOLAZINE 500 MG TAB.ER.12H PO SCH ×2 (08:44→17:30)
[2023-02-17] MEDS: TIMOLOL MALEATE 0.5% OPHT DROP 5 ML BOTTLE EACHEYE SCH ×2 (08:44→17:26)
[2023-02-17] MEDS: DIVALPROEX SPRINKLE 125 MG CAP.SPRINK PO SCH ×2 (08:44→17:29)
[2023-02-17] MEDS: GABAPENTIN 300 MG CAPSULE PO SCH ×2 (08:44→17:29)
[2023-02-17] MEDS: REMEDY ESSENTIAL ZINC PASTE 113 GM TOP SCH ×2 (08:45→20:46)
[2023-02-17] MEDS: ZINC SULFATE 220 MG CAPSULE PO SCH (08:45)
[2023-02-17] MEDS: APIXABAN 2.5 MG TABLET PO SCH ×2 (08:45→17:27)
[2023-02-17] MEDS: AMIODARONE HCL 200 MG TABLET PO SCH (10:04)
[2023-02-17] MEDS ORDERED: SODIUM POLYSTYRENE SULFONATE 15 G/60 ML LIQUID UDC PO ONE (12:30)
[2023-02-17] MEDS: LORAZEPAM 0.5 MG TABLET PO PRN (13:21)
[2023-02-17 15:12] VITALS: BP 124/56
[2023-02-17 20:08] VITALS: BP 146/72
[2023-02-17] MEDS: MONTELUKAST SODIUM 10 MG TABLET PO SCH (20:16)
[2023-02-17] MEDS: ATORVASTATIN 20 MG TABLET PO SCH (20:16)
[2023-02-17] MEDS: INSULIN GLARGINE,HUM 300 UNITS/3 ML CARTRIDGE SQ SCH (20:18)
--- NOTE | 2023-02-18 04:01 | NUR ---
GPS NOTES: Patient received in bed semi-asleep, responsive to name. Patient is heard yelling, "take me out of here, por humza". Checked on patient, patient is confused and making statements "Put me in the wheelchair, roll me down the lobby, I'm going home today". "I need coffee now, I didn't have my breakfast yet". Re-orient patient in current setting. He is not understanding at this time, yelling at staff that he is getting discharge today and attempt to get up of bed. Re-orientation in placed and he verbalized understanding and settles down. Patient needs are attended in timely manner. Frequent monitoring observed.
[2023-02-18 08:03] VITALS: BP 160/67
[2023-02-18] MEDS: RANOLAZINE 500 MG TAB.ER.12H PO SCH (08:39)
[2023-02-18] MEDS: GABAPENTIN 300 MG CAPSULE PO SCH (08:40)
[2023-02-18] MEDS: AMIODARONE HCL 200 MG TABLET PO SCH (08:40)
[2023-02-18] MEDS: CLOPIDOGREL 75 MG TABLET PO SCH (08:40)
[2023-02-18 08:41] VITALS: BP 160/67
[2023-02-18] MEDS: ASCORBIC ACID 500 MG TABLET PO SCH (08:41)
[2023-02-18] MEDS: DOCUSATE SODIUM 100 MG CAPSULE PO SCH (08:41)
[2023-02-18] MEDS: DIVALPROEX SPRINKLE 125 MG CAP.SPRINK PO SCH (08:41)
[2023-02-18] MEDS: ZINC SULFATE 220 MG CAPSULE PO SCH (08:41)
[2023-02-18] MEDS: TOLTERODINE LA 2 MG CAP.SR.24H PO SCH (08:41)
[2023-02-18] MEDS: LISINOPRIL 10 MG TABLET PO SCH (08:41)
[2023-02-18] MEDS: APIXABAN 2.5 MG TABLET PO SCH (08:42)
[2023-02-18] MEDS: TIMOLOL MALEATE 0.5% OPHT DROP 5 ML BOTTLE EACHEYE SCH (08:43)
[2023-02-18] MEDS: REMEDY ESSENTIAL ZINC PASTE 113 GM TOP SCH (08:43)
--- NOTE | 2023-02-18 09:24 | NUR ---
SHERINE Discharge Note: Pt will be discharged to [facility] located at [address] [place] [address] ([phone]) via ambulance transportation at 11AM. SHERINE spoke with admin coordinator, Andressa at the facility who states they are ready to accept the patient today. No family contact per pt. Pt is aware and agreeable with discharge plan. Pt is alert and oriented x2, is unable to plan for self-care at this time. However, pt is willing to accept care at SNF. Pt denies any suicidal or homicidal ideation. Pt will follow-up at the facility with Psychiatrist, Dr. Lo and FASHION CONSULTANT, Elsa. Pt presents with calm mood and congruent affect. PHARMACY: [facility] ([phone]) [address] [place] [address].
--- NOTE | 2023-02-18 09:36 | NUR ---
SHERINE Final Discharge Note: Pt will be discharged to [facility] located at [address] [place] [address] ([phone]) via ambulance transportation at 11AM. SHERINE spoke with admin coordinator, Andressa at the facility who states they are ready to accept the patient today in 22B. No family contact per pt. Pt is aware and agreeable with discharge plan. Pt is alert and oriented x2, is unable to plan for self-care at this time. However, pt is willing to accept care at SNF. Pt denies any suicidal or homicidal ideation. Pt will follow-up at the facility with Psychiatrist, Dr. Lo and SKIVING MACHINE OPERATOR, Elsa. Pt presents with calm mood and congruent affect. PHARMACY: [facility] ([phone]) [address] [place] [address].
[2023-02-18 11:02] LABS: CARBON DIOXIDE 35 mmol/L (21-32); CHLORIDE 106 mmol/L (98-107); CREATININE 1.1 mg/dL (0.6-1.3); GLUCOSE 149 mg/dL (74-106); MAGNESIUM 2.2 mg/dL (1.8-2.4); POTASSIUM 4.6 mmol/L (3.5-5.1); UREA NITROGEN, BLOOD 39 mg/dL (7-18)
--- NOTE | 2023-02-18 11:30 | NUR ---
Received orders to discharge this patient to [facility] located at [address] [place] [address] ([phone]) via ambulance transportation at 11AM. Patient is agreeable with discharge plans, but refused signing discharge documentation. Patient denies SI/HI AH/VH, SOB, pain or any discomfort. Patient belongings were returned to patient. Patient left unit at 11:30AM. Emotional support provided. Fall and safety precautions implemented.
[2023-02-18] MEDS ORDERED: DIVALPROEX SPRINKLE 125 MG CAP.SPRINK PO SCH (13:00)
== END 2023-02-18 11:30 | DRG 885 ==
LOC: ER 00:34 → GPS 02:00
PROVIDERS: ADMIT Psychiatry & Neurology Psychosomatic Medicine; ATTEND Internal Medicine
DX: F39 Unspecified mood [affective] disorder (principal); E43 Unspecified severe protein-calorie malnutrition; N17.0 Acute kidney failure with tubular necrosis; F03.911 Unspecified dementia, unspecified severity, with agitation; N39.0 Urinary tract infection, site not specified; D68.59 Other primary thrombophilia; G93.40 Encephalopathy, unspecified; F03.94 Unspecified dementia, unspecified severity, with anxiety; F03.92 Unspecified dementia, unspecified severity, with psychotic disturbance; Z86.73 Personal history of transient ischemic attack (TIA), and cerebral infarction without residual deficits; Z22.322 Carrier or suspected carrier of Methicillin resistant Staphylococcus aureus; Z79.02 Long term (current) use of antithrombotics/antiplatelets; Z95.0 Presence of cardiac pacemaker; Z88.6 Allergy status to analgesic agent; Z91.041 Radiographic dye allergy status; Z88.8 Allergy status to other drugs, medicaments and biological substances; Z91.018 Allergy to other foods; I25.2 Old myocardial infarction; I25.10 Atherosclerotic heart disease of native coronary artery without angina pectoris; Z74.09 Other reduced mobility; L98.9 Disorder of the skin and subcutaneous tissue, unspecified; E11.9 Type 2 diabetes mellitus without complications; Z79.4 Long term (current) use of insulin; Z79.01 Long term (current) use of anticoagulants; J45.909 Unspecified asthma, uncomplicated; I11.9 Hypertensive heart disease without heart failure; F41.0 Panic disorder [episodic paroxysmal anxiety]; E78.5 Hyperlipidemia, unspecified; D75.839 Thrombocytosis, unspecified; Z79.899 Other long term (current) drug therapy
CPT/HCPCS: 36415; 80164; 83735; 85025; C1758; G0480; J1815

== ENCOUNTER 2023-02-18 14:21 | Emergency (ER) | payer MEDICARE, OTHER ==
[~2023-02-18] VITALS: Ht 165.1 cm; Wt 77.1 kg
[~2023-02-18 14:21] MED LIST: AMIO200T5 PO; APIX2.5T PO; ASCO500T85 PO; ATOR40TA PO; CALC667T6 PO; CLOP75TA33 PO; DOCU100C36 PO; GABA-532 PO; MONT10TA33 PO; NITR0.4T48 SL; POLY17PO4 PO; RANO500T3 PO; TIMO5DRO18 EACHEYE; TOLT2CAP PO; ZINC220T3 PO; [UNRECOGNIZED DRUG - CODE] SUBCUT
--- NOTE | 2023-02-18 14:30 | NUR ---
Pt brought into ER by [facility] from the MHU unit at this facility. Per EMT report the patient was discharged from MHU, when they arrived to the receiving facility, they did not accept the patient so they came back to the MHU unit. The MHU unit stated they can not accept the patient back either and they were instruced by MHU staff to bring the patient to the ER. Spoke with Marisol Cardenas (director or MHU) and Honey (child welfare social worker) who stated they will work on discharge placement to another facility. Patient was registered in the ER as instructed and placed in ER room 3.
--- NOTE | 2023-02-18 15:30 | NUR ---
PT WAS D/C'd TO HIS NURSING FACILITY VIA BLS AMBULANCE. D/C INSTRUCTIONS GIVEN TO THE PT BY DR LORD.
[2023-02-18 15:31] VITALS: BP 137/84
== END 2023-02-18 15:32 | disposition home or self-care (01) ==
LOC: ER 14:21
DX: Z00.00 Encounter for general adult medical examination without abnormal findings (principal); R45.1 Restlessness and agitation; I25.2 Old myocardial infarction; I50.9 Heart failure, unspecified; E78.5 Hyperlipidemia, unspecified; J45.909 Unspecified asthma, uncomplicated; K21.9 Gastro-esophageal reflux disease without esophagitis; E11.9 Type 2 diabetes mellitus without complications; Z95.0 Presence of cardiac pacemaker; Z88.6 Allergy status to analgesic agent; Z88.5 Allergy status to narcotic agent; Z88.8 Allergy status to other drugs, medicaments and biological substances; Z91.018 Allergy to other foods; Z79.899 Other long term (current) drug therapy
CPT/HCPCS: A4663